=== PATIENT | male | born 1965 | race Caucasian/White ===

== ENCOUNTER 2017-04-17 18:59 | Emergency (ER) | payer MEDICAID ==
[2017-04-17 21:18] LABS: Hematocrit 46 % (42-52); Hemoglobin 15.4 g/dl (14.0-18.0); Mean Corpuscular HGB Conc 33 g/dl (31-36); Mean Corpuscular Hemoglobin 32 pg (27-31); Mean Corpuscular Volume 97 fL (80-94); Mean Platelet Volume 10 um3 (7.4-10.4); Red Blood Count 4.76 10^6/ul (4.0-5.4); Red Cell Distribution Width 14 % (10.5-15)
--- NOTE | 2017-04-17 21:31 | RAD ---
INDICATION: Shortness of breath and leg swelling COMPARISON: Chest x-ray dated July 10 TECHNIQUE: PA and lateral views of the chest were obtained. FINDINGS: Similar the previous chest x-ray there is a mild degree of cardiomegaly. The pulmonary vasculature is mildly engorged and indistinct. The costophrenic angles are well-defined. The lungs are grossly clear. Visualized bones are normal for the patient's age. There is no radiographic evidence of free air beneath the diaphragm IMPRESSION: IN THE CORRECT CLINICAL SETTING THE CHEST X-RAY FINDINGS COULD REPRESENT EXACERBATION OF CONGESTIVE HEART FAILURE.
[2017-04-17 21:32] LABS: Albumin 3.9 g/dL (3.2-5.2); BUN/Creatinine Ratio 17.2 (8-20); Calcium 9.4 mg/dL (8.6-10.3); EGFR Non-African American 91.8 (>60); Globulin 3.2 g/dL (2-4); Potassium 4.2 mmol/L (3.5-5.0); Total Bilirubin 0.3 mg/dL (0.2-1.0); Total Protein 7.1 g/dL (6.4-8.9)
[2017-04-17 21:33] LABS: Troponin I 0.01 ng/mL (<0.04)
[2017-04-17 23:17] VITALS: BP 128/79
== END 2017-04-17 23:54 | disposition home or self-care (01) ==
LOC: ED 18:59
DX: R06.00 Dyspnea, unspecified (principal)
CPT/HCPCS: 36415; 71020; 80053; 82550; 83605; 83880; 84484; 85025; 86703; 93005; 99283

== ENCOUNTER 2017-05-31 00:31 | Observation (INO) | payer MEDICAID, OTHER ==
[2017-05-31] MEDS ORDERED: Aspirin Low Dose CHEW TAB* 81 MG PO ONE (00:47)
[2017-05-31 01:03] LABS: Hematocrit 50 % (42-52); Hemoglobin 16.5 g/dl (14.0-18.0); Mean Corpuscular HGB Conc 33 g/dl (31-36); Mean Corpuscular Hemoglobin 32 pg (27-31); Mean Corpuscular Volume 94 fL (80-94); Mean Platelet Volume 10 um3 (7.4-10.4); Red Blood Count 5.24 10^6/ul (4.0-5.4); Red Cell Distribution Width 14 % (10.5-15); White Blood Count 10.8 10^3/ul (3.5-10.8)
[2017-05-31 01:20] LABS: Albumin 4.2 g/dL (3.2-5.2); BUN/Creatinine Ratio 24.3 (8-20); Calcium 9.9 mg/dL (8.6-10.3); EGFR African American 85.6 (>60); EGFR Non-African American 66.5 (>60); Globulin 3.3 g/dL (2-4); Potassium 4.6 mmol/L (3.5-5.0); Total Bilirubin 0.6 mg/dL (0.2-1.0); Total Protein 7.5 g/dL (6.4-8.9)
[2017-05-31 01:59] LABS: Magnesium 1.9 mg/dL (1.9-2.7)
[2017-05-31 02:10] LABS: TSH (Thyroid Stimulating Horm) 3.05 mcIU/mL (0.34-5.60)
[2017-05-31] MEDS ORDERED: Iohexol 350* (CONTRAST) 500 ML MDV IV ONE (02:33)
--- NOTE | 2017-05-31 08:22 | RAD ---
INDICATION: Chest pain COMPARISON: Chest x-ray April 17, 2017 TECHNIQUE: An AP portable view obtained at 0123 hours is submitted. FINDINGS: Bones/Soft Tissues: There are no acute bony findings. Cardiomediastinal: The cardiac silhouette is enlarged. Lungs: There are no definitive infiltrates. Pleura: There are no pleural effusions. Other: Probable partial eventration right hemidiaphragm IMPRESSION: NO DEFINITIVE INFILTRATES. SUGGEST FOLLOW-UP CLINICALLY INDICATED.
--- NOTE | 2017-05-31 09:01 | RAD ---
INDICATION: Chest pressure, shortness of breath and dizziness. Relevant surgical history includes cholecystectomy. COMPARISON: None. TECHNIQUE: Multidetector CT angiography images of the chest, abdomen and pelvis were obtained from the lung apices to the ischial tuberosities following the injection of 1 mL of Omnipaque 350 intravenous contrast. The patient received oral contrast as well prior to imaging.. ANGIOGRAPHIC FINDINGS: There are no filling defects of the centrilobular pulmonary arteries to indicate acute pulmonary embolism. The aorta is normal in size and morphology. NON-ANGIOGRAPHIC FINDINGS: CHEST: The lungs are clear. There are no large pleural effusions. There is no mediastinal or hilar lymphadenopathy. The heart and major vascular structures are grossly normal in appearance. ABDOMEN \T\ PELVIS: The liver is homogenously hypodense relative to the spleen. There are no focal or suspicious liver masses. Scattered coarse calcifications are noted in the spleen. The pancreas and adrenal glands are grossly normal in appearance. The gallbladder is surgically absent. The kidneys are normal in appearance without focal mass, calcification or signs of hydronephrosis. The oral contrast has progressed as far as the transverse colon. The small and large bowel are not distended. The partially gas-filled appendix measures 6 mm in diameter identified in the right lower quadrant (axial image 129 and coronal image 67). There is no gross retroperitoneal or mesenteric lymphadenopathy. There is a fat-containing umbilical hernia. The pelvic viscera is normal in appearance. Multilevel degenerative changes of the thoracic and lumbar spine includes loss of intervertebral disc height and vacuum disc phenomenon at L5/S1 where there is endplate sclerosis and marginal osteophyte formation. There are no sinister bone lesions. IMPRESSION: 1. No pulmonary embolus or acute aortic dissection. 2. Likely hepatic steatosis or other chronic infiltrative disease of the liver. 3. Additional chronic, degenerative and iatrogenic findings described in the body the report unlikely to be directly related to the patient's current presentation.
--- NOTE | 2017-05-31 09:34 | ED ---
Sukhdev Cruz Thomas, scribed for Rachel Yuen MD on 05/31/17 at 0107 . HPI Chest Pain - HPI Summary HPI Summary: The pt is a 52 y/o F presenting to the ED c/o two episodes of CP had resolved by the time he arrived. The pain is constant and is described as a pressure. Pt indicates the pain is epigastric. The pain is aggravated and alleviated by nothing. The patient has not treated this pain with anything APRON MAN. Pt additionally c/o a feeling of swollen heart and lungs. He also notes that he is unable to find a comfortable position. He describes an inability to take a full breath. He additionally c/o dizziness. Pt denies leg pain (although he did have some a week ago). He is not taking any medication currently. PMHx: extensive history of fractures. PSHx: many repairs for fractures. SHx: smoking, no alcohol use, no illicit drug use. He denies ever having a blood clot. He was seen at [facility] 04/17/17 for shortness of breath and leg swelling and was DC'd home with no meds, and advised to get established with PCP. Pt has an appt with [facility] but cannot be seen until Jul 13. Pt reports increasing LEIJA with diaphoresis when climbing stairs. Pt is a former asset manager and states he is very fit normally but has decreased exercise tolerance. - History of Current Complaint Chief Complaint: EDChestPainROMI Time Seen by Provider: 05/31/17 00:55 Hx Obtained From: Patient Onset/Duration: Started Hours Ago, Resolved Timing: Constant, Lasting Minutes - 40 minutes each time Initial Severity: Moderate Current Severity: Moderate Pain Intensity: 4 Pain Scale Used: 0-10 Numeric Chest Pain Radiates To:: Epigastric Character: Dyspnea at Exertion, Pressure/Squeezing Aggravating Factor(s): Exertion Alleviating Factor(s): Nothing Associated Signs and Symptoms: Positive: Chest Pain, Dizziness, Other: - POS: "swollen heart and lungs", inability to take a full breath; NEG: leg pain Related History: Obesity - Risk Factors Pulmonary Embolism Risk Factors: Smoking TAD Risk Factors: Smoking AMI/ACS Risk Factors: Obesity, Smoking - Allergy/Home Medications Allergies/Adverse Reactions: Allergies Allergy/AdvReac Type Severity Reaction Status Date / Time No Known Allergies Allergy Verified 05/31/17 00:34 PMH/Surg Hx/FS Hx/Imm Hx Previously Healthy: No Musculoskeletal History: Reports: Other Musculoskeletal History - Hx of many fractures Sensory History: Denies: Hx Legally Blind Opthamlomology History: Denies: Hx Legally Blind - Surgical History Surgery Procedure, Year, and Place: Many repairs for broken bones Infectious Disease History: Denies: Traveled Outside the [place] in Last 30 Days - Family History Known Family History: Positive: Other - NEG: "no history as far as he knows" - Social History Occupation: Unemployed - hasn't worked for 4 months (05/2017) Alcohol Use: Rare Substance Use Type: Reports: None Smoking Status (MU): Current Every Day Smoker Review of Systems Negative: Fever Positive: Chest Pain - began last night, resolved by time in ED Positive: Other - "swollen heart and lungs" Positive: Abdominal Pain - epigastric Positive: Edema - bilateral, but less than one month ago. Negative: Other - NEG : leg pain Neurological: Other - POS: dizziness Psychological: Normal All Other Systems Reviewed And Are Negative: Yes Physical Exam Triage Information Reviewed: Yes Vital Signs On Initial Exam: Initial Vitals BP 91/77 05/31/17 00:45 Vital Signs Reviewed: Yes Appearance: Positive: Well-Appearing, No Pain Distress - pain resolved by time of evaluation, Obese Skin: Positive: Warm, Skin Color Reflects Adequate Perfusion Head/Face: Positive: Normal Head/Face Inspection Eyes: Positive: Conjunctiva Clear ENT: Positive: Normal ENT inspection Neck: Positive: Supple Respiratory/Lung Sounds: Positive: Clear to Auscultation, Breath Sounds Present , Other - No respiratory distress Cardiovascular: Positive: RRR, Pulses are Symmetrical in both Upper and Lower Extremities, Other - Brisk cap refill. Negative: Murmur Abdomen Description: Positive: Nontender, Soft, Other: - no pulsatile mass Bowel Sounds: Positive: Present Musculoskeletal: Positive: Strength/ROM Intact Neurological: Positive: Sensory/Motor Intact, Alert, Oriented to Person Place, Time, Facial Symmetry, Speech Normal, Other - Motor intact Psychiatric: Positive: Normal Diagnostics - Vital Signs Vital Signs Temp Pulse Resp BP Pulse Ox 05/31/17 08:00 69 22 90 05/31/17 07:53 98.2 F 66 18 105/69 92 05/31/17 07:30 20 105/69 05/31/17 07:15 19 137/59 05/31/17 07:00 72 24 118/76 96 05/31/17 06:47 73 16 117/79 98 05/31/17 06:30 108/79 05/31/17 06:15 80 24 95/76 91 05/31/17 06:00 19 05/31/17 05:45 19 114/75 05/31/17 05:30 20 128/82 05/31/17 05:15 20 117/89 05/31/17 05:00 25 109/79 05/31/17 04:45 21 85/54 05/31/17 04:30 110 26 99/84 94 05/31/17 04:29 109 24 88/60 96 05/31/17 04:20 107 29 96 05/31/17 03:30 117 28 121/63 95 05/31/17 03:19 116 17 97/56 95 05/31/17 03:15 131 89/73 94 05/31/17 03:00 124 21 96 05/31/17 02:45 122 25 105/76 94 05/31/17 02:30 121 30 94/69 95 05/31/17 02:15 124 27 100/72 94 05/31/17 02:00 122 24 96/68 95 05/31/17 01:45 126 32 90/72 94 05/31/17 01:30 122 30 106/71 95 05/31/17 01:15 121 28 94/76 95 05/31/17 01:07 98.2 F 125 24 91/77 93 05/31/17 01:06 123 24 87/67 94 05/31/17 01:03 123 26 85/55 95 05/31/17 01:00 122 20 95 05/31/17 00:46 126 23 92 05/31/17 00:45 91/77 - Laboratory Lab Results: Lab Results 05/31/17 05/31/17 05/31/17 Range/Units 00:52 00:52 00:52 WBC 10.8 (3.5-10.8) 10^3/ul RBC 5.24 (4.0-5.4) 10^6/ul Hgb 16.5 (14.0-18.0) g/dl Hct 50 (42-52) % MCV 94 (80-94) fL MCH 32 H (27-31) pg MCHC 33 (31-36) g/dl RDW 14 (10.5-15) % Plt Count 210 (150-450) 10^3/ul MPV 10 (7.4-10.4) um3 Neut % (Auto) 79.2 (38-83) % Lymph % (Auto) 15.5 L (25-47) % [place] % (Auto) 2.9 (1-9) % Eos % (Auto) 1.2 (0-6) % Baso % (Auto) 1.2 (0-2) % Absolute Neuts (auto) 8.5 H (1.5-7.7) 10^3/ul Absolute Lymphs (auto) 1.7 (1.0-4.8) 10^3/ul Absolute Monos (auto) 0.3 (0-0.8) 10^3/ul Absolute Eos (auto) 0.1 (0-0.6) 10^3/ul Absolute Basos (auto) 0.1 (0-0.2) 10^3/ul Absolute Nucleated RBC 0.02 10^3/ul Nucleated RBC % 0.2 INR (Anticoag Therapy) (0.89-1.11) APTT (26.0-36.3) seconds D-Dimer, Quantitative (Less Than 230) ng/mL Sodium 134 (133-145) mmol/L Potassium 4.6 (3.5-5.0) mmol/L Chloride 100 L (101-111) mmol/L Carbon Dioxide 29 (22-32) mmol/L Anion Gap 5 (2-11) mmol/L BUN 28 H (6-24) mg/dL Creatinine 1.15 (0.67-1.17) mg/dL Est GFR ( Amer) 85.6 (>60) Est GFR (Non-Af Amer) 66.5 (>60) BUN/Creatinine Ratio 24.3 H (8-20) Glucose 251 H (70-100) mg/dL Lactic Acid 1.1 (0.5-2.0) mmol/L Calcium 9.9 (8.6-10.3) mg/dL Magnesium 1.9 (1.9-2.7) mg/dL Total Bilirubin 0.60 (0.2-1.0) mg/dL AST 20 (13-39) U/L ALT 32 (7-52) U/L Alkaline Phosphatase 61 (34-104) U/L Total Creatine Kinase 69 (10-223) U/L CK-MB (CK-2) 3.2 (0.6-6.3) ng/mL Troponin I 0.00 (<0.04) ng/mL B-Natriuretic Peptide ( - 100) pg/mL Total Protein 7.5 (6.4-8.9) g/dL Albumin 4.2 (3.2-5.2) g/dL Globulin 3.3 (2-4) g/dL Albumin/Globulin Ratio 1.3 (1-3) TSH 3.05 (0.34-5.60) mcIU/mL 05/31/17 05/31/17 05/31/17 Range/Units 00:52 00:52 03:45 WBC (3.5-10.8) 10^3/ul RBC (4.0-5.4) 10^6/ul Hgb (14.0-18.0) g/dl Hct (42-52) % MCV (80-94) fL MCH (27-31) pg MCHC (31-36) g/dl RDW (10.5-15) % Plt Count (150-450) 10^3/ul MPV (7.4-10.4) um3 Neut % (Auto) (38-83) % Lymph % (Auto) (25-47) % [place] % (Auto) (1-9) % Eos % (Auto) (0-6) % Baso % (Auto) (0-2) % Absolute Neuts (auto) (1.5-7.7) 10^3/ul Absolute Lymphs (auto) (1.0-4.8) 10^3/ul Absolute Monos (auto) (0-0.8) 10^3/ul Absolute Eos (auto) (0-0.6) 10^3/ul Absolute Basos (auto) (0-0.2) 10^3/ul Absolute Nucleated RBC 10^3/ul Nucleated RBC % INR (Anticoag Therapy) 0.97 (0.89-1.11) APTT 29.3 (26.0-36.3) seconds D-Dimer, Quantitative 281 H (Less Than 230) ng/mL Sodium (133-145) mmol/L Potassium (3.5-5.0) mmol/L Chloride (101-111) mmol/L Carbon Dioxide (22-32) mmol/L Anion Gap (2-11) mmol/L BUN (6-24) mg/dL Creatinine (0.67-1.17) mg/dL Est GFR ( Amer) (>60) Est GFR (Non-Af Amer) (>60) BUN/Creatinine Ratio (8-20) Glucose (70-100) mg/dL Lactic Acid (0.5-2.0) mmol/L Calcium (8.6-10.3) mg/dL Magnesium (1.9-2.7) mg/dL Total Bilirubin (0.2-1.0) mg/dL AST (13-39) U/L ALT (7-52) U/L Alkaline Phosphatase (34-104) U/L Total Creatine Kinase (10-223) U/L CK-MB (CK-2) (0.6-6.3) ng/mL Troponin I 0.01 (<0.04) ng/mL B-Natriuretic Peptide 41 ( - 100) pg/mL Total Protein (6.4-8.9) g/dL Albumin (3.2-5.2) g/dL Globulin (2-4) g/dL Albumin/Globulin Ratio (1-3) TSH (0.34-5.60) mcIU/mL 05/31/ Range/Units 07:28 WBC (3.5-10.8) 10^3/ul RBC (4.0-5.4) 10^6/ul Hgb (14.0-18.0) g/dl Hct (42-52) % MCV (80-94) fL MCH (27-31) pg MCHC (31-36) g/dl RDW (10.5-15) % Plt Count (150-450) 10^3/ul MPV (7.4-10.4) um3 Neut % (Auto) (38-83) % Lymph % (Auto) (25-47) % [place] % (Auto) (1-9) % Eos % (Auto) (0-6) % Baso % (Auto) (0-2) % Absolute Neuts (auto) (1.5-7.7) 10^3/ul Absolute Lymphs (auto) (1.0-4.8) 10^3/ul Absolute Monos (auto) (0-0.8) 10^3/ul Absolute Eos (auto) (0-0.6) 10^3/ul Absolute Basos (auto) (0-0.2) 10^3/ul Absolute Nucleated RBC 10^3/ul Nucleated RBC % INR (Anticoag Therapy) (0.89-1.11) APTT (26.0-36.3) seconds D-Dimer, Quantitative (Less Than 230) ng/mL Sodium (133-145) mmol/L Potassium (3.5-5.0) mmol/L Chloride (101-111) mmol/L Carbon Dioxide (22-32) mmol/L Anion Gap (2-11) mmol/L BUN (6-24) mg/dL Creatinine (0.67-1.17) mg/dL Est GFR ( Amer) (>60) Est GFR (Non-Af Amer) (>60) BUN/Creatinine Ratio (8-20) Glucose (70-100) mg/dL Lactic Acid (0.5-2.0) mmol/L Calcium (8.6-10.3) mg/dL Magnesium (1.9-2.7) mg/dL Total Bilirubin (0.2-1.0) mg/dL AST (13-39) U/L ALT (7-52) U/L Alkaline Phosphatase (34-104) U/L Total Creatine Kinase (10-223) U/L CK-MB (CK-2) (0.6-6.3) ng/mL Troponin I 0.00 (<0.04) ng/mL B-Natriuretic Peptide ( - 100) pg/mL Total Protein (6.4-8.9) g/dL Albumin (3.2-5.2) g/dL Globulin (2-4) g/dL Albumin/Globulin Ratio (1-3) TSH (0.34-5.60) mcIU/mL Result Diagrams: 05/31/17 00:52 05/31/17 00:52 Lab Statement: Any lab studies that have been ordered have been reviewed, and results considered in the medical decision making process. - EKG 00:37 Cardiac Rate: Tachycardia - 124 BPM EKG Interpretation: Junctional tachycardia. Nml IV, QTc, axis 234. No acute changes. 00:55 Cardiac Rate: Tachycardia - 121 BPM EKG Rhythm: Sinus Tachycardia - First degree block. Nml IV conduction time, normal QTc. 06:21 Cardiac Rate: NL - 75 BPM EKG Interpretation: First degree AV block. Prolonged IV conduction time. Possible RBBB. Nml QTc EKG Comparison: No Significant Change - No change from prior. [place] 32. Re-Evaluation - Re-Evaluation First Eval Re-Evaluation Time: 09:00 - Pt reports that he has no pain or SOB now. States he has had increased SOB when going up stairs, and breaks out in a sweat with exertion, worse than previous. Change: Unchanged Chest Pain Course/Dx - Course Assessment/Plan: The pt is a 52 y/o F presenting to the ED c/o two episodes of CP that began last night but had resolved by the time he arrived. The pain is constant and is described as a pressure. The pain is aggravated and alleviated by nothing. The patient has not treated this pain with anything APRON MAN. Pt additionally c/o a feeling of swollen heart and lungs. He also notes that he is unable to find a comfortable position. He describes an inability to take a full breath. He additionally c/o dizziness. Pt denies leg pain (although he did have some a week ago). He is not taking any medication currently. PMHx: extensive history of fractures. PSHx: many repairs for fractures. SHx: smoking, no alcohol use, no illicit drug use. He denies ever having a blood clot. He was seen at [facility] 4 weeks ago for shortness of breath. Blood pressure noted. In the ED course the patient was given ASA. Bloodwork reveals D-dimer 281, Chloride 100, Glucose 251. Troponins neg x 3. BNP normal. EKG nonSTEMI CXR reveals no evidence for acute disease. CTA done for elevated d-dimer and chest and abd pain, neg for dissection, aneurysm, PE, or significant abnormality. Discussed with Dr. Villalpando who arranged immediate nuclear medicine stress test. - Chest Pain Differential Diagnosis/HQI/PQRI: ACS, Angina, Aortic Aneurysm, CHF, Pulmonary Edema, Pulmonary Embolism - Diagnoses Provider Diagnoses: Chest pain in adult - Provider Notifications Discussed Care Of Patient With: Jelena Villalpando - advises nuclear cardiac exercise testing now. Time Discussed With Above Provider: 09:10 Discharge - Discharge Plan Condition: Stable Disposition: OTHER Discharge Disposition Comment: Signed out from Dr. Yuen to Dr. Hein pending nuclear stress test The documentation as recorded by the Sukhdev reyna Thomas accurately reflects the service I personally performed and the decisions made by , Rachel Yuen MD.
[2017-05-31] MEDS ORDERED: Regadenoson* 0.4 MG/5 ML SYRINGE ONE (13:40)
--- NOTE | 2017-05-31 16:20 | ED ---
Re-Evaluation - Re-Evaluation First Eval Re-Evaluation Time: 09:00 - Pt reports that he has no pain or SOB now. States he has had increased SOB when going up stairs, and breaks out in a sweat with exertion, worse than previous. Change: Unchanged Course/Dx - Course Course Of Treatment: PATIENT WILL BE ADMITTED FOR CHEST PAIN AND TO HAVE THE RESTING PORTION OF HIS STRESS TEST TOMORROW. DISCUSSED WITH DR LIVE, PATIENT AND HOSPITALIST. ADMIT HOSPITALIST STABLE - Diagnoses Provider Diagnoses: Chest pain in adult - Provider Notifications Time Discussed With Above Provider: 09:10
[2017-05-31] MEDS ORDERED: Acetaminophen TAB* 325 MG PO PRN (17:27)
[2017-05-31] MEDS ORDERED: Nicotine Inhaler* 10 MG AMP INH PRN (17:32)
[2017-05-31] MEDS ORDERED: Mouth Piece, Nicotine* 1 EACH CARTRIDGE INH PRN (17:32)
[2017-05-31] MEDS ORDERED: Dextrose 50% Syringe 50 ML* 25 GM/50 ML SYRINGE IV PUSH PRN (17:43)
[2017-05-31] MEDS: Nicotine PATCH 21 MG/24 HR* PATCH TRANSDERM SCH (17:57)
[2017-05-31] MEDS: Heparin VIAL(*) 5000 UNITS/ML VIAL (FIVE THOUSAND) SUBCUT SCH (20:21)
[2017-05-31] MEDS: Insulin LISPRO* 1 UNITS UNIT SUBCUT SCH (20:21)
[2017-05-31] MEDS: Nicotine Patch Removal NOTE FOLLOW UP SCH (20:26)
--- NOTE | 2017-06-01 00:30 | HP ---
CC: Dr. Wheeler * HISTORY AND PHYSICAL: DATE OF ADMISSION: 05/31/17 TIME OF EVALUATION: 5 p.m. PRIMARY CARE PHYSICIAN: Dr. Wheeler. CHIEF COMPLAINT: Chest pain. HISTORY OF PRESENT ILLNESS: Mr. Wheeler is a 52-year-old morbidly obese male with limited contact with the health system who presented to the emergency room on 05/31/17 with complaints of chest pain. His symptoms go back for months. Earlier this year, he started to have progressive lower extremity edema. He did not seek medical attention initially. He states that he did some research on the internet and decided to cut down the amount of salt he was eating. The edema would fluctuate, but then finally in March, he decided to come to the emergency room for further evaluation. He states that his evaluation at that time was unremarkable and he was discharged home and encouraged to seek a primary care provider. He did and he actually has an appointment scheduled to see Dr. Wheeler, but the sooner they could see him was in July. He continued to have the lower extremity edema, but he also has complaints of shortness of breath. Initially, the shortness of breath was with excessive exertion and he attributed that to his age and obesity, but the dyspnea continued to progress. He states that now he cannot go up a flight of stairs without stopping and activities that usually he could do easily now feel like a great effort associated with diaphoresis. He also describes orthopnea and PND. He was advised in the past to be checked for obstructive sleep apnea, but never had any studies done. He states that this past week, he has had more shortness of breath than usual, although his lower extremity edema seems to be improved. Last night, he had sudden onset of retrosternal chest pain, squeezing in nature, 7-810 while he was just resting. He states the pain lasted for 45 minutes and then resolved. At that point, he decided to go to bed and the pain returned to the point that he considered calling EMS but then decided to come to the emergency room for further evaluation. PAST MEDICAL HISTORY: 1. Morbid obesity with a BMI of 61. 2. Tobacco abuse. Patient has limited contact with the medical system. MEDICATIONS LIST: None. ALLERGIES: No known drug allergies. FAMILY HISTORY: The patient is adopted and the only thing he knows is that his biological mother had "circulation problems." SOCIAL HISTORY: The patient has been a smoker since age 11 up to 1. He used to smoke 2 packs a day and now he is down to 10 to 12 cigarettes a day. He states that he drinks occasionally once a year. He states that he experimented with drugs more than 25 years ago, but denies any recent use. Surrogate decision maker is Corinne Mcnulty, a friend, who is also a nurse at [facility] [employer]. REVIEW OF SYSTEMS: A 14-point review of systems was performed and all the pertinent negative and positive findings are in the HPI. PHYSICAL EXAMINATION GENERAL: The patient is a morbidly obese male, sitting up in bed, in no acute distress. VITAL SIGNS: Temperature 98.2, heart rate is 73, respiratory rate is 22, oxygen saturation is 93% on room air, blood pressure is 109/91. HEENT: Pupils are equal. Moist mucous membranes. CVS: Normal S1 and S2. Regular rate and rhythm. CHEST: Breath sounds present bilaterally with very faint bibasilar rales. ABDOMEN: Obese. Bowel sounds are present. EXTREMITIES: There is chronic skin changes and bilateral edema, nonpitting. NEUROLOGIC: He is alert, awake and oriented x3. Able to move all 4 extremities. LABORATORY AND IMAGING DATA: The patient had a CBC that showed a WBC of 10.8, hemoglobin of 16.5, hematocrit of 50, platelet of 210,000 with 79% neutrophils. INR was 0.97, D-dimer is 281. Chemistry showed a sodium of 134, potassium 4.6, chloride of 100, bicarb of 29, BUN of 28, creatinine of 1.1, glucose of 251, lactic acid of 1.1, calcium of 9.9, magnesium 1.9. LFTs are normal. Serial troponins were negative. BNP was normal at 41. TSH is 3.05. EKG done on 05/31/17 at 12:47 a.m. showed junctional tachycardia at 124 beats per minute and then a repeat EKG was done at 12:55 and he was in sinus tachycardia, but with no clear ischemic changes and a third done was at 6:21 a.m. and it showed sinus rhythm at 75 beats per minute with suggestion of intraventricular conduction delay. The patient also had a chest x-ray with no definitive infiltrates, and a CTA of the chest, abdomen and pelvis showed no pulmonary embolus or acute aortic dissection, likely hepatic steatosis. ASSESSMENT AND PLAN: Mr. Wheeler is a 52-year-old male with a past medical history of morbid obesity, tobacco abuse that presented to the emergency room with complaints of months of progressive dyspnea and lower extremity edema and 2 episodes of chest pain last night. 1. Chest pain. Acute coronary syndrome ruled out. The plan is for the patient to conclude the second part of his stress test tomorrow. He will be continued on aspirin at this point. I am going to monitor his vital signs and review them on telemetry and I am going to check a lipid profile. 2. Possible acute congestive heart failure exacerbation. The patient has had months of progressive dyspnea, lower extremity edema, orthopnea, paroxysmal nocturnal dyspnea. He is going to have an echocardiogram checked. The fact that his BNP is low which is reassuring, but his clinical picture certainly suggests congestive heart failure. I am not going to diurese him for now as he appears comfortable but he will probably need a diuretic in the morning. 3. Possible obstructive sleep apnea. In view of his morbid obesity, I suspect this patient probably has sleep apnea and he has avoided testing as outpatient. I am going to check an overnight oximetry on room air to see if he qualifies at least for nocturnal oxygen. 4. Hyperglycemia. I suspect the patient has diabetes as the random glucose done in the middle of the night was 250. We are going to check a hemoglobin A1c and we are going to monitor his fingersticks. 5. Metabolic syndrome. I suspect that is what the patient has too, so I am going to check a uric acid level to complete his workup. 6. DVT prophylaxis. The patient has a score of 3 on the DVT prophylaxis Risk Assessment Guide, and he will be started on subcutaneous heparin. 7. Code status is full. TIME SPENT: Approximately 60 to 65 minutes were spent with the patient interview, medical records review, physical examination to complete this admission, more than half of this time was spent [id number] with the patient in coordination of care. [id number]/[facility] #: [id number] [place]
[2017-06-01 02:35] LABS: Urine Bilirubin Negative (Negative); Urine Glucose 3+(>=500 mg/dL) (Negative); Urine Nitrite Negative (Negative)
[2017-06-01 05:09] LABS: BUN/Creatinine Ratio 20.9 (8-20); EGFR African American 112.1 (>60); EGFR Non-African American 87.2 (>60); HDL Cholesterol 25.7 mg/dL; Potassium 4.3 mmol/L (3.5-5.0); Uric Acid 4.4 mg/dL (4.4-7.6)
[2017-06-01] MEDS: Heparin VIAL(*) 5000 UNITS/ML VIAL (FIVE THOUSAND) SUBCUT SCH ×3 (05:27→21:24)
--- NOTE | 2017-06-01 08:40 | RAD ---
INDICATION: Chest pain COMPARISON: None TECHNIQUE: Rest images were acquired following the intravenous injection of 26.0 millicuries of technetium 99m tetrofosmin. Pharmacologic stress images were acquired following the intravenous administration of 26.6 millicuries of technetium 99m tetrofosmin. FINDINGS: There is a small fixed inferoapical defect. There are no additional defects of a stress-induced or fixed nature. There does appear to be diaphragmatic attenuation. The cardiac chamber size is normal. There is diffuse hypokinesis with very limited movement in the apex. The ejection fraction is calculated at 65 percent during rest and 46% during stress. IMPRESSION: 1. Small fixed inferoapical defect. No definitive ischemic defects. 2. Diffuse hypokinesis of the apical segment shows very little wall motion. 3. Ejection fraction is depressed measuring 46% during stress. ASSESSMENT: INTERMEDIATE-RISK Based on imaging criteria from ACC/AHA 2002 Guideline Update for the Management of Patients With Chronic Stable Angina Table 23. Noninvasive Risk Stratification.
[2017-06-01] MEDS: Nicotine PATCH 21 MG/24 HR* PATCH TRANSDERM SCH (09:26)
[2017-06-01] MEDS: Aspirin EC Low Dose* 81 MG TAB.EC PO SCH (09:29)
[2017-06-01] MEDS: Insulin LISPRO* 1 UNITS UNIT SUBCUT SCH ×6 (09:53→21:20)
[2017-06-01] MEDS ORDERED: Dextrose 50% Syringe 50 ML* 25 GM/50 ML SYRINGE IV PUSH PRN (11:10)
[2017-06-01] MEDS ORDERED: Nicotine GUM* 2 MG PO PRN (11:12)
--- NOTE | 2017-06-01 11:25 | CONSULT ---
Subjective Date of Service: 06/01/17 Interval History: Admission Date: 05/31/17 Date of consult: 06/01/2017 Provider: Hospitalist/ Belle Luis MD PMD: Dr. Wheeler CHIEF COMPLAINT: Chest pain. Reason for consult: abnormal stress test HISTORY OF PRESENT ILLNESS: Mr. Wheeler is a 52-year-old morbidly obese male with a history of diabetes not at goal newly diagnosed, ongoing to tobacco use, has upcoming appointment in July to establish with a Primary care doctor, Dr. Wheeler who presents with progressive edema which he tried to appropriately self-treat with limiting sodium. This has been going on for 2 years and has correlated with him gaining 100 pounds. He was also noted to have dyspnea on exertion during this time period as well limited on flights of stairs. He also notices easily sweating with activity. He had a normal BNP and denies any orthopnea or PND. He has been advised to be evaluated for sleep apnea in the past but has not done so. He was admitted 2 days ago with discomfort at lower half of chest to umbilicus at rest lasting about 45 minutes and then resolved. It was at rest. He was found with an SVT rate about 120 bpm I am unsure the mechanism of or relation to current symptoms, there was no ischemic changes and had serially normal troponin levels. He had a vasodilator lexiscan stress test images reviewed. Raw cine images appeared to have normal LV function and no hypokinesis, there was a very small, mild intensity fixed apical defect on the attenuation correction images that appeared to be from apical thinning. An echocardiogram showed an unindexed 6 cm LVEDD dilation, moderate LVH, LVEF 55-60% with no segmental wall motion abnormalities noted. There was physiologic TR unable to estimate PASP. He had a nocturnal oximetry test highly suggestive of significant sleep apnea. He has not smoked in 2 days and already feels his chronic dyspnea has improved. PAST MEDICAL HISTORY: 1. Morbid obesity 2. Tobacco abuse. 3. DM newly diagnosed MEDICATIONS LIST: None. ALLERGIES: No known drug allergies. FAMILY HISTORY: The patient is adopted and the only thing he knows is that his biological mother had "circulation problems." SOCIAL HISTORY: The patient has been a smoker since age 11. He used to smoke 2 packs a day and now he is down to 10 to 12 cigarettes a day. He states that he drinks occasionally once a year. He states that he experimented with drugs more than 25 years ago, but denies any recent use. Surrogate decision maker is Corinne Mcnulty, a friend, who is also a nurse at [employer]. and then first from drug overdose. from second . Has 2 children age 18 and 21. No currently working. Medications Active Medications: Acetaminophen (Tylenol Tab*) 650 mg PO Q6H PRN PRN Reason: pain/fever Aspirin (Aspirin Ec Low Dose*) 81 mg PO DAILY COUNT INCLUDES THE [facility] Last Admin: 06/01/17 09:29 Dose: 81 mg Atorvastatin Calcium (Lipitor*) 40 mg PO 2100 COUNT INCLUDES THE [facility] Device (Nicotine Mouth Piece*) 1 each INH .USE WITH NICOTROL PRN PRN Reason: CRAVING Last Admin: 05/31/17 17:57 Dose: 1 each Dextrose (D50w Syringe 50 Ml*) 12.5 gm IV PUSH .FOR FS < 60 - SS PRN PRN Reason: FS < 60 Dextrose (D50w Syringe 50 Ml*) 12.5 gm IV PUSH .FOR FS < 60 - SS PRN PRN Reason: FS < 60 Heparin Sodium (Porcine) (Heparin Vial(*)) 5,000 units SUBCUT Q8HR COUNT INCLUDES THE [facility] Last Admin: 06/01/17 05:27 Dose: 5,000 units Insulin Glargine (Lantus(*)) 10 units SUBCUT BEDTIME [place] Insulin Human Lispro (Humalog*) 0 units SUBCUT ACHS COUNT INCLUDES THE [facility] PRN Reason: Protocol Last Admin: 06/01/17 09:53 Dose: Not Given Insulin Human Lispro (Humalog*) 0 units SUBCUT AC COUNT INCLUDES THE [facility] PRN Reason: Protocol Nicotine (Nicotine Inhaler*) 10 mg INH Q2H PRN PRN Reason: CRAVING Last Admin: 05/31/17 17:57 Dose: 10 mg Nicotine (Nicotine Patch 21 Mg/24 Hr*) 1 patch TRANSDERM DAILY COUNT INCLUDES THE [facility] Last Admin: 06/01/17 09:26 Dose: Not Given Nicotine Polacrilex (Nicotine Gum*) 2 mg PO Q2H PRN PRN Reason: CRAVING Pharmacy Profile Note (Nicotine Patch Removal Note*) 1 note FOLLOW UP 2100 COUNT INCLUDES THE [facility] Last Admin: 05/31/17 20:26 Dose: 1 note Home Medications: NK [No Home Medications Reported] 05/31/17 [History Confirmed 05/31/17] Review of Systems - Measurements Intake and Output: Intake and Output Last 24 Hours 05/30/17 05/31/17 06/01/17 06/02/17 06:59 06:59 06:59 06:59 Intake Total 2750 Output Total 2074 1899 Balance 675 -1899 Weight 417 lb 14.4 oz Intake: Oral 2750 Output: Urine 2074 1899 Other: Estimated Void Medium # Bowel Movements 0 # Voids 1 - Review of Systems Constitutional Symptoms: Positive: Weight Gain, Fatigue Dermatology: Negative: Rash, Skin Lesions HEENT: Negative: Change in Hearing, Vertigo, Tinnitus Eyes: Negative: Change in Vision, Double Vision Thyroid: Positive: Weight Gain Negative: Goiter, Thyroid Nodule, Cold Intolerance, Heat Intolerance, Sweatiness, Primary Hypothyroidism, Primary Hyperthyroidism, Weight Loss, Change in Skin/Hair Pulmonary: Positive: Shortness of Breath, Exercise Intolerance Negative: Cough, Sputum, Hemoptysis, Wheezing, Respiratory Distress, COPD, Asthma, Home Oxygen Cardiology: Positive: Chest Pain, Shortness of Breath, Swelling of Ankles, Edema Negative: Palpitations, Peripheral Vascular Dis, Faintness, Syncope, Claudication, Paroxysmal Nocturnal Dyspnea, Orthopnea Gastroenterology: Negative: Normal, Abdominal Pain, Nausea, Vomiting, Anorexia, Indigestion, Difficulty Swallowing, Heartburn, Constipation, Diarrhea, Blood in Stools, Change in Bowel Habits, Haematemesis, Melena, Other Genital - Urinary: Negative: Dysuria, Hematuria, Polyuria Musculoskeletal: Negative: Osteoporosis, Sciatica Endocrinology: Positive: Obesity, Diabetes, Hyperglycemia Negative: Calluses, Hirsutism, Polydipsia, Polyuria, Pituitary Disease Hematologic/Lymphatic: Negative: Anemia, Easy Brusing, Hx Leukemia, Hx Lymphoma, Use of Anticoagulant, Use of Antiplatelet Drugs Neurology: Negative: Headaches, Migraines, Change in Balancing, Change in Coordination, Change in Memory, Hx of Stroke\\TIA, Hx Seizures Psychiatry: Positive: Depression Negative: Adhedonia, Sexual Dysfunction, Weight Change, Guilt Feelings, Tearfulness, Unusual Fatigue, Unusual Anxiety, Suicidal Ideation, Hypomania, Eating Disorders Allergic/Immunologic: Negative: Hx Anaphylaxis, Hx Angioedema, Hx Environmental Allergies, Hx Seasonal Allergies, Hx HIV, Immunocompromise, Swollen Glands Lymph Nodes Review of Systems Statement: All other review of systems negative, unless stated above. Objective Vital Signs: Temp Pulse Resp BP Pulse Ox 97.4 F 62 20 125/77 91 06/01/17 07:45 06/01/17 07:45 06/01/17 07:45 06/01/17 07:45 06/01/17 07:45 Appearance: obese, nad Neck: Trachea Midline, - - uncertain jvp Respiratory: Symmetrical Chest Expansion and Respiratory Effort, Clear to Auscultation Cardiovascular: RRR, - - no significant murmur, 1+ edema with chronic stasis changes Extremities: No Clubbing, Cyanosis Neurological: Alert and Oriented x 3 Laboratory Results: 05/31/17 00:52 06/01/17 04:24 INR (Anticoag Therapy) 0.97 (0.89-1.11) 05/31/17 00:52 APTT 29.3 seconds (26.0-36.3) 05/31/17 00:52 Total Bilirubin 0.60 mg/dL (0.2-1.0) 05/31/17 00:52 AST 20 U/L (13-39) 05/31/17 00:52 ALT 32 U/L (7-52) 05/31/17 00:52 Alkaline Phosphatase 61 U/L (34-104) 05/31/17 00:52 CK-MB (CK-2) 3.2 ng/mL (0.6-6.3) 05/31/17 00:52 B-Natriuretic Peptide 41 pg/mL (-100) 05/31/17 00:52 Total Protein 7.5 g/dL (6.4-8.9) 05/31/17 00:52 Albumin 4.2 g/dL (3.2-5.2) 05/31/17 00:52 Globulin 3.3 g/dL (2-4) 05/31/17 00:52 Albumin/Globulin Ratio 1.3 (1-3) 05/31/17 00:52 Triglycerides 166 mg/dL 06/01/17 04:24 Cholesterol 118 mg/dL 06/01/17 04:24 LDL Cholesterol 59 mg/dL 06/01/17 04:24 HDL Cholesterol 25.7 mg/dL 06/01/17 04:24 TSH 3.05 mcIU/mL (0.34-5.60) 05/31/17 00:52 05/31/17 05/31/17 05/31/17 00:52 03:45 07:28 Troponin I 0.00 0.01 0.00 Diagnostic Imagin05/31/2017: CTA of the chest, abdomen and pelvis showed no pulmonary embolus or acute aortic dissection, likely hepatic steatosis. EKG Data: EKG 05/31/2017: SVT uncertain mechanism rate 120 bpm, ivcd, no ischemic changes EKG 05/31/2017 repeat: NSR, IVCD TTE and Lexiscan nuclear stress test as per HPI Assessment/Plan In summary, Mr. Wheeler presents with now chronic dyspnea and edema for 2 years associated with a 100 pound weight gain. LVEF and BNP are normal. Also admitted with atypical stomach/chest pain at rest without any rise and fall of troponin suggestive of ACS. Attenuation correction stress test images are essentially normal. Has had no further chest discomfort. Found with new onset diabetes, has ongoing tobacco use, morbid obesity. There was an SVT on admission rate about 120 bpm I am unsure if related or not to his current presentation. - It was discussed and patient expressed understanding that any future cigarette smoking (even in the short term over next days, weeks, and months) may lead to things including but not limited to heart attack, stroke and . He expressed understanding. - Also expressed understanding of need to lose a large amount of weight and have diabetes come under control to reduce future cardiovascular risk - Although current symptoms do not appear to be ischemic in nature, he is at relative high risk of future cardiovascular events with his multiple uncontrolled risk factors and is not to hesitate to seek emergency medical care for return of chest discomfort or concerning symptoms. - Would recommend sodium restriction, weight loss and sleep apnea treatment. If edema persists after this can consider a diuretic - Start aspirin and statin as prescribed and continue for primary prevention - Start diltiazem 120 mg PO daily for SVT suppression ? related to symptoms - I added pepcid empirically for ? GI related discomfort - DM management per primary service - Will arrange cardiology follow up. Thank you for allowing me to participate in the cardiovascular care of this patient. Please do not hesitate to contact me with questions or concerns.
--- NOTE | 2017-06-01 11:45 | PN ---
Subjective Date of Service: 06/01/17 Interval History: HOSPITALIST PROGRESS NOTE Patient seen and examined at bedside. He feels better today, no further episodes of chest pain. Family History: Unchanged from Admission Social History: Unchanged from Admission Past Medical History: Unchanged from Admission Objective Active Medications: Acetaminophen (Tylenol Tab*) 650 mg PO Q6H PRN PRN Reason: pain/fever Aspirin (Aspirin Ec Low Dose*) 81 mg PO DAILY [facility] Last Admin: 06/01/17 09:29 Dose: 81 mg Atorvastatin Calcium (Lipitor*) 40 mg PO 2100 [facility] Device (Nicotine Mouth Piece*) 1 each INH .USE WITH NICOTROL PRN PRN Reason: CRAVING Last Admin: 05/31/17 17:57 Dose: 1 each Dextrose (D50w Syringe 50 Ml*) 12.5 gm IV PUSH .FOR FS < 60 - SS PRN PRN Reason: FS < 60 Heparin Sodium (Porcine) (Heparin Vial(*)) 5,000 units SUBCUT Q8HR [facility] Last Admin: 06/01/17 05:27 Dose: 5,000 units Insulin Glargine (Lantus(*)) 10 units SUBCUT BEDTIME [facility] Insulin Human Lispro (Humalog*) 0 units SUBCUT ACHS [facility] PRN Reason: Protocol Last Admin: 06/01/17 09:53 Dose: Not Given Insulin Human Lispro (Humalog*) 0 units SUBCUT AC [facility] PRN Reason: Protocol Nicotine (Nicotine Inhaler*) 10 mg INH Q2H PRN PRN Reason: CRAVING Last Admin: 05/31/17 17:57 Dose: 10 mg Nicotine (Nicotine Patch 21 Mg/24 Hr*) 1 patch TRANSDERM DAILY [facility] Last Admin: 06/01/17 09:26 Dose: Not Given Nicotine Polacrilex (Nicotine Gum*) 2 mg PO Q2H PRN PRN Reason: CRAVING Pharmacy Profile Note (Nicotine Patch Removal Note*) 1 note FOLLOW UP 2099 [facility] Last Admin: 05/31/17 20:26 Dose: 1 note Vital Signs 06/01/17 06/01/17 06/01/17 00:30 04:29 07:45 Temperature 97.6 F 98.0 F 97.4 F Pulse Rate 66 67 62 Respiratory 16 20 Rate Blood Pressure 119/65 106/56 125/77 (mmHg) O2 Sat by Pulse 91 94 91 Oximetry Oxygen Devices in Use Now: None Appearance: Pleasant morbid obese male lying in bed in NAD. Eyes: No Scleral Icterus Ears/Nose/Mouth/Throat: Mucous Membranes Moist Neck: Trachea Midline Respiratory: Symmetrical Chest Expansion and Respiratory Effort, Clear to Auscultation Cardiovascular: RRR - Normal S1 and S2 Neurological: Alert and Oriented x 3, NL Muscle Strength and Tone Lines/Tubes/Other Access: Clean, Dry and Intact Peripheral IV Nutrition: Taking PO's Result Diagrams: 05/31/17 00:52 06/01/17 04:24 Assess/Plan/Problems-Billing Assessment: Mr. Wheeler is a 52yo M with PMH of morbid obesity and tobacco abuse, who presented to ED with c/o CP and dyspnea. - Patient Problems (1) Chest pain Comment: - Multiple risk factors for CAD. Stress test shows small inferoapical defect, diffuse hypokinesis of apical segments, EF 46% with exertion. - Cardiology consult requested. - Continue medical management with Aspirin, statin, hold off on beta blockers for now due to bradycardia. (2) Type 2 diabetes mellitus Comment: - Newly diagnosed. - A1c 9.8. - Lantus and Lispro SS for now, but will discharge on Metformin and Glipizide. (3) LETTY (obstructive sleep apnea) Comment: - Overnight oximetry very suggestive of LETTY. - Plan for supplemental O2 at night until able to have sleep study as outpatient. (4) Tobacco abuse Comment: - Patient educated about need to quit smoking. He understands if he continues to smoke he'll . He's very motivated at this time. - Continue nicotine supplementation. (5) Morbid exogenous obesity Comment: - Will refer to [facility] on discharge to assist with weight loss and management of comorbidities. (6) SVT (supraventricular tachycardia) Comment: - Not rate control agents for now as patient is minoo. Will await Cardiology input. (7) DVT prophylaxis Comment: - SQ heparin. (8) Full code status Status and Disposition: Will change to inpatient.
--- NOTE | 2017-06-01 11:58 | ECHO ---
Amended Report Patient: BLU THOMAS [facility] [place] Rec#: [id number] : 1965 Date: 06/01/2017 Age: 52y Height: 203.2 cm / 80.0 in Weight: 190.06 kg / 418.9 lbs Sex: M BSA: 3.15 Room#: 453 Admit Date#: 05/31/2017 Type: Inpatient Referring: Belle Luis MD Reading: Nabor Yates MD Employment Coordinator: Latha Banda RDCS CC: Shant Wheeler MD Transthoracic Echocardiogram Indication: CHF, chest pain. BP: 106/56 HR: 95 Rhythm: NSR with PVCs Findings History: LE edema, MO, smoker, DMII. Technical Comments: The study quality is fair. The study is technically limited due to patient body habitus. Completed at 1110. Left Ventricle: The left ventricular chamber size is moderately dilated. Moderate concentric left ventricular hypertrophy is observed. Global left ventricular wall motion and contractility are within normal limits. There is normal left ventricular systolic function. The estimated ejection fraction is 55-60%. Normal left ventricular diastolic filling is observed. Left Atrium: The left atrium is mildly dilated. Right Ventricle: The right ventricle is not well visualized.The right ventricle appears normal in size in the parasternal long and short axis viewws, apical views are somewhat off axis. The right ventricle is slightly dilated. The right ventricle wall thickness is normal. The right ventricular global systolic function is normal. Right Atrium: The right atrium is not well visualized.Accurate chamber size cannot be commented on due to poor imaging. Aortic Valve: The aortic valve is trileaflet. The aortic valve leaflets are mildly thickened. There is a trace of aortic regurgitation. There is no evidence of aortic stenosis. Mitral Valve: The mitral valve leaflets are mildly thickened. There is a trace of mitral regurgitation. There is no evidence of mitral stenosis. Tricuspid Valve: The tricuspid valve leaflets are normal. There is a physiologic tricuspid regurgitation. Unable to estimate the right ventricular systolic pressure. There is evidence that pulmonary hypertension may be underestimated. There is no tricuspid stenosis. Pulmonic Valve: The pulmonic valve appears normal. There is a trace pulmonic regurgitation. There is no pulmonic stenosis. Pericardium: There is no significant pericardial effusion. A pericardial fat pad is visualized. Aorta: There is mild dilatation of the ascending aorta. There is no dilatation of the aortic arch. There is moderate dilatation of the aortic root. Pulmonary Artery: The main pulmonary artery appears normal. Venous: The inferior vena cava is not visualized. Conclusions The study is technically limited due to patient body habitus with poor quality images for interrogation. Moderate concentric left ventricular hypertrophy is observed. There is normal left ventricular systolic function. The estimated ejection fraction is 55-60%. There is moderate dilatation of the aortic root. There is mild dilatation of the ascending aorta. No evidence for significant valvular disease: There is a trace of mitral regurgitation. There is a physiologic tricuspid regurgitation. There is a trace pulmonic regurgitation. No reports of prior studeis are offered for comparison, Measurements Name Value Normal Range RVIDd (AP) 2D 3.8 cm (0.9 - 2.6) RVDdMajor (2D) 5.5 cm (2.2 - 4.4) RVAW (2D) 0.8 cm (0.2 - 0.5) RAd ISD 4CH 6.4 cm (3.4 - 4.9) RA (A4C)W 6.5 cm (2.9 - 4.6) IVSd (2D) 1.3 cm (0.6 - 1) LVPWd (2D) 1.3 cm (0.6 - 1) LVIDd (2D) 6 cm (3.6 - 5.4) LVIDs (2D) 4 cm - LV FS (2D) 32 % (25 - 45) Aortic Annulus 2.6 cm (1.4 - 2.6) Ao root diameter (2D) 4.6 cm (2.1 - 3.5) Ascending Ao 3.7 cm (2.1 - 3.4) Aortic arch 2.7 cm (1.8 - 3.4) LA dimension (AP) 2D 4.9 cm (2.3 - 3.8) LAd ISD 4CH 6.7 cm (2.9 - 5.3) LA ISD 4CH W 4.9 cm (2.5 - 4.5) Name Value Normal Range LA ESV SP 4CH (A/L) 88 ml - LA ESV SP 2CH (A/L) 80 ml - LA ESV BP (A/L) 92 ml - LA ESV BP (A/L) index 29.24 ml/m2 - LA ESV SP 4CH (MOD) 82 ml - LA ESV SP 2CH (MOD) 75 ml - Name Value Normal Range MV E-wave Vmax 0.5 m/sec - MV deceleration time 280.6 msec - MV A-wave Vmax 0.49 m/sec - MV E:A ratio 1 ratio - LV septal e' Vmax 0.09 m/sec - LV lateral e' Vmax 0.13 m/sec - LV E:e' septal ratio 5.56 ratio - LV E:e' lateral ratio 3.85 ratio - Name Value Normal Range AV Vmax 1.41 m/sec - AV VTI 29.9 cm - AV peak gradient 7.95 mmHg - AV mean gradient 4.51 mmHg - LVOT Vmax 1.2 m/sec - LVOT VTI 25.4 cm - LVOT peak gradient 6.01 mmHg - LVOT mean gradient 3.45 mmHg - GREG Vmax 0.7 m/sec - Name Value Normal Range TR Vmax 1.5 m/sec - TR peak gradient 9 mmHg - RAP 8 mmHg - Name Value Normal Range PV Vmax 0.88 m/sec - PV peak gradient 3.09 mmHg -
[2017-06-01] MEDS: Famotidine TAB* 20 MG PO SCH ×2 (13:30→21:21)
[2017-06-01] MEDS: Diltiazem CD CAP* 120 MG PO SCH (13:30)
[2017-06-01] MEDS ORDERED: Insulin GLARGINE(*) 1 UNITS UNIT SUBCUT SCH (21:00)
[2017-06-01] MEDS ORDERED: Atorvastatin* 40 MG TAB PO SCH (21:00)
[2017-06-01] MEDS: Nicotine Patch Removal NOTE FOLLOW UP SCH (21:22)
[2017-06-02] MEDS: Heparin VIAL(*) 5000 UNITS/ML VIAL (FIVE THOUSAND) SUBCUT SCH (05:14)
[2017-06-02] MEDS ORDERED: Pneumococcal *Vac Polyvalent 0.5 ML VIAL IM ONE (09:00)
[2017-06-02] MEDS: Insulin LISPRO* 1 UNITS UNIT SUBCUT SCH ×4 (09:30→13:29)
[2017-06-02] MEDS: Diltiazem CD CAP* 120 MG PO SCH (09:33)
[2017-06-02] MEDS: Aspirin EC Low Dose* 81 MG TAB.EC PO SCH (09:33)
[2017-06-02] MEDS: Famotidine TAB* 20 MG PO SCH (09:33)
[2017-06-02] MEDS: Nicotine PATCH 21 MG/24 HR* PATCH TRANSDERM SCH (09:35)
--- NOTE | 2017-06-02 09:40 | CONSULT ---
Subjective Reason for Visit: Newly diagnosed type II diabetes Admission Date: 05/31/17 Glucose Level On Admission: 251 History Of Present Illness: Mr. Wheeler is a 52 year old male who presented to the ED with chest pain on 05/31. He had been generally feeling "off" and reports periodically having blurred vision, polyuria, polydipsia, and "feeling like I might ". Labs on admission demonstrated elevated glucose and HgbA1C was found to be 9.8. He moved to the area 1.5 years ago and had not yet established with a PCP. Reports a weight gain of approximately 100 lbs over the past year, which he attributes to being staying in the house and being less active in general. He wants to lose weight and has many nutrition related questions today. He is interested in learning more about a diabetic diet, weight loss, and smoking cessation. Patient History Surgical History: Yes Surgery Procedure, Year, and Place: Many repairs for broken bones, harshad, hernia Lives With: Self Preferred/Primary Language: Swiss Hx Tobacco Use: Yes - not since admission, plans on quitting after d/c Exercise: none now Review Of Systems - Review of Systems Constant: - - reports weight gain of 100 lbs over the past year Eyes: - - reports blurred vision at times, not currently Cardiovascular: - - presented to ED with CP Endocrine: - - reports polyuria and polydipsia Objective Allergies Allergy/AdvReac Type Severity Reaction Status Date / Time No Known Allergies Allergy Verified 05/31/17 00:34 Home Medications Medication Instructions Recorded Confirmed Type NK [No Home Medications Reported] 05/31/17 05/31/17 History Hospital Medications: Current Medications Acetaminophen (Tylenol Tab*) 650 mg PO Q6H PRN PRN Reason: pain/fever Last Admin: 06/02/17 04:49 Dose: 650 mg Aspirin (Aspirin Ec Low Dose*) 81 mg PO DAILY [facility] Last Admin: 06/02/17 09:33 Dose: 81 mg Atorvastatin Calcium (Lipitor*) 40 mg PO 2100 [facility] Last Admin: 06/01/17 21:21 Dose: 40 mg Device (Nicotine Mouth Piece*) 1 each INH .USE WITH NICOTROL PRN PRN Reason: CRAVING Last Admin: 05/31/17 17:57 Dose: 1 each Dextrose (D50w Syringe 50 Ml*) 12.5 gm IV PUSH .FOR FS < 60 - SS PRN PRN Reason: FS < 60 Diltiazem HCl (Cardizem Cd Cap*) 120 mg PO DAILY [facility] Last Admin: 06/02/17 09:33 Dose: 120 mg Famotidine (Pepcid Tab*) 20 mg PO BID [facility] Last Admin: 06/02/17 09:33 Dose: 20 mg Heparin Sodium (Porcine) (Heparin Vial(*)) 5,000 units SUBCUT Q8HR [facility] Last Admin: 06/02/17 05:14 Dose: 5,000 units Insulin Glargine (Lantus(*)) 10 units SUBCUT BEDTIME [facility] Last Admin: 06/01/17 21:18 Dose: 10 units Insulin Human Lispro (Humalog*) 0 units SUBCUT ACHS [facility] PRN Reason: Protocol Last Admin: 06/02/17 09:30 Dose: 6 unit Insulin Human Lispro (Humalog*) 0 units SUBCUT AC [facility] PRN Reason: Protocol Last Admin: 06/02/17 09:31 Dose: 7 units Nicotine (Nicotine Inhaler*) 10 mg INH Q2H PRN PRN Reason: CRAVING Last Admin: 05/31/17 17:57 Dose: 10 mg Nicotine (Nicotine Patch 21 Mg/24 Hr*) 1 patch TRANSDERM DAILY [facility] Last Admin: 06/02/17 09:35 Dose: 1 patch Nicotine Polacrilex (Nicotine Gum*) 2 mg PO Q2H PRN PRN Reason: CRAVING Last Admin: 06/01/17 19:42 Dose: 2 mg Pharmacy Profile Note (Nicotine Patch Removal Note*) 1 note FOLLOW UP 2100 [facility] Last Admin: 06/01/17 21:22 Dose: Not Given Lab Data: Sodium 133 mmol/L (133-145) 06/01/17 04:24 Potassium 4.3 mmol/L (3.5-5.0) 06/01/17 04:24 BUN 19 mg/dL (6-24) 06/01/17 04:24 Creatinine 0.91 mg/dL (0.67-1.17) 06/01/17 04:24 Hemoglobin A1c 9.8 % (Less than 6.0) H 06/01/17 04:24 Calcium 9.0 mg/dL (8.6-10.3) 06/01/17 04:24 Magnesium 1.9 mg/dL (1.9-2.7) 05/31/17 00:52 AST 20 U/L (13-39) 05/31/17 00:52 ALT 32 U/L (7-52) 05/31/17 00:52 Triglycerides 166 mg/dL 06/01/17 04:24 Cholesterol 118 mg/dL 06/01/17 04:24 LDL Cholesterol 59 mg/dL 06/01/17 04:24 Vital Signs: Vital Signs 06/02/17 06/02/17 06/02/17 04:44 07:41 07:46 Temperature 36.3 C 36.8 C Pulse Rate 71 55 Respiratory 20 18 18 Rate Blood Pressure 128/75 118/67 (mmHg) O2 Sat by Pulse 95 97 Oximetry Height: 5 ft 9 in Weight: 190.327 kg Body Mass Index (BMI): 61.9 Physical Exam General Appearance: Positive: Alert, Oriented x3, Obese, No Distress, Lying In Bed Dentition: Positive: Multiple Missing teeth - Pt wears full dentures Cardiovascular: Positive: RRR Plan Of Care Referral To: [facility] For Further OutPT Diabetic Training Diagnosis: Mr. Wheeler is a 52 year old male with newly diagnosed type II diabetes and class III obesity. Pt was educated on s/sx of hypo and hyperglycemia, provided with a glucometer, and given information on the pathophysiology and progression of the disease. Recommend weight loss and smoking cessation. He should follow up at [facility] for further diabetes education, MSWL, and tobacco counseling. Education Education Provided: Blood Glucose Monitoring, When To Seek Medical Attention Goals Goals: According to the [place] [employer], the following are your goals for Hemaglobin A1C, Blood Glucose, Cholesterol and Blood Pressure. Hemaglobin A1C * <7.0% for most * <6.5% for "healthy" * <8.0% for "Less Healthy" Blood Glucose * Fasting Blood Glucose: 80-130 mg/dl * 2 Hour Post Prandial Glucose <180 mg/dl
[2017-06-02 13:58] VITALS: BP 115/30
--- NOTE | 2017-06-03 11:37 | DS ---
CC: Dr. Wheeler, primary care provider; Dr. Kim, consulting cigar head pegger. DISCHARGE SUMMARY: DATE OF ADMISSION: 05/31/17 DATE OF DISCHARGE: 06/02/17 DISCHARGE DIAGNOSES: 1. Morbid obesity with a BMI of 62. 2. Tobacco abuse. 3. Probable obstructive sleep apnea. 4. Newly diagnosed type 2 diabetes. 5. Supraventricular tachycardia. 6. Chest pain, acute coronary syndrome ruled out. MEDICATION LIST: All the medications below are new: 1. Aspirin 81 mg p.o. daily. 2. Atorvastatin 40 mg p.o. bedtime. 3. Diltiazem CD 120 mg p.o. daily. 4. Famotidine 20 mg p.o. b.i.d. 5. Glipizide XL 2.5 mg p.o. daily. 6. Metformin 500 mg p.o. daily. 7. Nicotine gum as needed for craving. HOSPITAL COURSE: Mr. Wheeler is a 52-year-old male with a past medical history as stated above that presented to the emergency room on 05/31 with complaints of chest pain. His actual history goes germaine k for months with progressive lower extremity edema followed by progressive shortness of breath on exertion and culminating with the episode on the day prior to admission with retrosternal pressure-l manuel chest pain. For more details about his presentation, I refer you to his history and physical. The patient had a chest x-ray that showed no definitive infiltrate and a CTA of the chest, abdomen a nd pelvis that showed no pulmonary embolus or acute aortic dissection. Likely hepatic steatosis or other chronic infiltrative disease of the liver. He was admitted to the telemetry floor for further evaluation. He had two troponins that were negat ирина and he underwent a pharmacological nuclear stress test that showed showed a small fixed inferior apical defect, no definite ischemic defect, diffuse hypokinesis of the apical segment and ejection fraction depressed measuring 46% during stress. A transthoracic echocardiogram showed an ejection f raction of 55% to 60% with moderate concentric LVH. The patient was seen in consultation by cardiology and he was seen by Dr. Kim. His impression was that in summary Mr. Gill presents with now chronic dyspnea and edema for 2 years associated with a 100-pound weight gain. LV ejection fraction and BNP are normal. Also admitted with atypical stom ach/chest pain at rest without any rise and fall of troponin suggestive of an acute coronary syndrom e. Attenuation and correction stress test images are essentially normal. He has had no further ches t discomfort, found with new onset diabetes, has ongoing tobacco use, morbid obesity. There was an SVT on admission with a rate of about 120 beats per minute. He was unsure if it is related or not t o his current presentation. He discussed with the patient and the patient expressed understanding t hat any future cigarette smoking may lead to things including but not limited to heart attacks, stro ke, and . The patient is very motivated to quit at this time. He also expressed understanding of the need to lose a large amount of weight and have diabetes controlled to reduce future cardiova scular risk. Although current symptoms do not appear to be ischemic in nature he is at a relative h igh risk of future cardiovascular events with his multiple uncontrolled risk factors and he is not t o hesitate to seek emergency medical for return of chest discomfort or concerning symptoms. He marah mmended sodium restriction, weight loss, and sleep apnea treatment, and if edema persists then after this he would consider a diuretic. He recommended aspirin and statin to continue for primary preve ntion, diltiazem 120 mg p.o. daily for SVT suppression and also Pepcid and famotidine for possible G I related discomfort. He will continue to follow the patient in his office and he did not feel that a cardiac cath was indicated at this time. We did discuss the stress test report and Dr. Julio saravia els that the report is not correct and his test was actually normal, but he agrees that the patient is at high risk for coronary artery disease so as outpatient if he deems necessary the patient will undergo a cardiac cath. T he patient was also found to have possible sleep apnea. He describes snoring and friends have brennan cribed that he stops breathing when he sleeps. He had an overnight oximetry on room air and he had an oxygen saturation below 90% during 2 hours 40 minutes and he was less than 89% continuously for a longest stretch of 33 minutes. This was repeated with supplemental oxygen at 2 L [address] although he st ill had the saturations those were less frequent and the longest continuous one was for 6 minutes 20 seconds. The patient was referred to Dr. Caballero for further evaluation. He is aware how important it is to treat his sleep apnea. The patient was also found to have a random glucose of 251 in the emergency room. Hemoglobin A1c was checked and was found to be 9.8. The patient was initially started on Lantus and Lispro insulin wh ile in the hospital and he received extensive diabetes education including a consultation with Juanita oglesby, nurse practitioner. He will be discharged on low dose metformin and glipizide, but this escobar l further need to be increased as outpatient. He was referred to [facility] to assist with diabetes, weig ht loss, and tobacco use cessation. The patient states that he feels the nicotine gum is the one that helps him the most with the cravin gs and he is very motivated to quit at this time. The patient's lipid profile showed triglycerides of 166, cholesterol of 118, LDL of 59, HDL of 25 an d cardiology recommended continued statin should decrease his risk. Uric acid was 4.4. The patient had a resolution of his symptoms and states that he felt like he has more energy now. Janes whitehead is medically stable to be discharged home today and he will followup with Dr. Wheeler on 06/05 at 2:30 p.m. PHYSICAL EXAMINATION: Vital Signs: Temperature 98.4, heart rate is 60, respiratory rate is 18, oxy gen saturation is 94% on room air, blood pressure is 115/30. General: The patient is a pleasant mo rbidly obese male sitting up in bed in no acute distress. CVS: Normal S1, S2. Regular rate and rh ythm. Chest: Breath sounds present bilaterally with no added sounds. Abdomen: Obese, soft. Bowel sounds are present. Extremities: There are chronic ischemic changes with mild bilateral lower extr emity edema. Neuro: He is alert and oriented x3. Able to move all 4 extremities. DIET: Heart healthy consistent carb diet. ACTIVITY: As tolerated. DISPOSITION: To home. STATUS WHILE IN THE HOSPITAL: Inpatient. Please keep in mind, this is a summarized version of this patient's hospital stay. He was educated a bout symptoms that should prompt his return to the emergency room and also about possible side effec ts of the new medications he is taking now. He verbalizes understanding other recommendations. If you need more information, please feel free to call me at [phone] or please obtain the full medical records. TIME SPENT: Approximately 65 minutes was spent to complete the discharge. [id number]/[facility] #: [id number]
== END 2017-06-02 13:58 | disposition home or self-care (01) | DRG 203 ==
LOC: ED 00:31 → MEDTELE 16:17 → OBSVTOIN 06-01 15:42 → INTOOBSV 06-01 15:42
PROVIDERS: ADMIT Internal Medicine; ATTEND Internal Medicine
DX: R07.9 Chest pain, unspecified (principal); I47.1 Supraventricular tachycardia; E11.9 Type 2 diabetes mellitus without complications; F17.210 Nicotine dependence, cigarettes, uncomplicated; Z79.82 Long term (current) use of aspirin; E66.01 Morbid (severe) obesity due to excess calories; Z68.44 Body mass index [BMI] 60.0-69.9, adult; Z79.4 Long term (current) use of insulin; R94.39 Abnormal result of other cardiovascular function study
CPT/HCPCS: 36415; 71010; 71275; 74177; 78452; 80048; 80053; 80061; 81003; 82550; 82553; 83036; 83605; 83735; 83880; 84443; 84484; 84550; 85025; 85379; 85610; 85730; 90732; 93005; 93017; 93306; 94762; 99221; 99285; A9270-GY; A9502; G0378; J1644; J2785; Q9967